=== PATIENT | female | born 1945 | race Caucasian/White ===

== ENCOUNTER → 2019-08-28 | Outpatient (CLI) | payer MEDICARE ==
[~2019-08-28] MED LIST: ASPIRIN325 MG PO; CIPROFLOXACIN500 MG PO; HYDROCODONE BIT1 T11 PO; MULTI-DAY VITA1 EACH PO; NAPROSYN500 MG PO; NAPROXEN500 M1 PO; VICO10300 PO
== END | disposition home or self-care (01) ==
LOC: CARD 00:48
DX: I65.23 Occlusion and stenosis of bilateral carotid arteries (principal); I08.8 Other rheumatic multiple valve diseases; R09.89 Other specified symptoms and signs involving the circulatory and respiratory systems

== ENCOUNTER → 2019-09-29 | Outpatient (CLI) | payer MEDICARE | END | disposition home or self-care (01) | LOC: MAMMO 00:34 | DX: Z12.31 Encounter for screening mammogram for malignant neoplasm of breast (principal); M81.0 Age-related osteoporosis without current pathological fracture; E04.1 Nontoxic single thyroid nodule; Z72.0 Tobacco use; Z78.0 Asymptomatic menopausal state ==

== ENCOUNTER 2020-02-12 16:06 | Inpatient (IN) | payer MEDICARE ==
[~2020-02-12] VITALS: Ht 152.4 cm; Wt 51.4 kg
[2020-02-12 17:30] VITALS: BP 162/87
--- NOTE | 2020-02-12 17:39 | NUR ---
PT WATCHING TV IN [place] BED IN LOWEST POSITION CALL LIGHT IN REACH
[2020-02-12 19:00] VITALS: BP 160/88
[2020-02-12 19:15] LABS: HEMATOCRIT 48.8 % (37.0-47.0); MEAN CELL VOLUME 93.1 fl (81.0-99.0); MEAN CORPUSCULAR HGB 30.3 pg (27.0-31.0); MEAN CORPUSCULAR HGB CONC 32.6 g/dl (33.0-37.0); MEAN PLATELET VOLUME 8.9 fl (9.6-12.3); PLATELET COUNT AUTOMATED 159 10*3/uL (130-400); RED BLOOD COUNT 5.24 10*6/uL (4.10-5.10); RED CELL DISTRI WIDTH 13.6 % (0-14.5); WHITE BLOOD COUNT 2.7 10*3/uL (4.8-10.8)
[2020-02-12 19:33] LABS: ALKALINE PHOSPHATASE 66 U/L (45-117); BUN 10 mg/dl (7-24); CHLORIDE 103 mmol/L (98-107); CREATININE 0.78 mg/dL (0.55-1.02); SGOT/AST 25 IU/L (3-35); SGPT/ALT 19 U/L (12-78); SODIUM 137 mmol/L (136-145); TOTAL PROTEIN 6.7 gm/dL (6.4-8.2)
[2020-02-12 19:36] LABS: ATYPICAL LYMPHS 3 % (0-0); BASOPHILS 1 % (0-1); TOTAL CELLS COUNTED 100 #CELLS
[2020-02-12 19:37] LABS: BURR CELLS FEW; PLATELET SUFFICIENCY NORMAL (NORMAL)
[2020-02-12 19:39] LABS: TROPONIN I < 0.015 ng/ml (<0.045)
[2020-02-12 20:06] VITALS: BP 160/70
--- NOTE | 2020-02-12 22:00 | NUR ---
PT RESTING ON CART AT THIS TIME. CLEMENTINA NASCIMENTO RN.
--- NOTE | 2020-02-13 01:24 | NUR ---
AT THIS TIME THE PULSE OX NOTED TO BE 88% ON 4 LITERS. O2 TURNED UP AND RESP NOTIFEID. CLEMENTINA NASCIMENTO RN.
--- NOTE | 2020-02-13 02:00 | NUR ---
PT PLACED ON 12LHF DUE TO DESATURATION TO 87% ON 6LNC. SATURATION NOTED TO BE 92% ON 12LHF. NO NOTED RES DISTRESS OR SOB NOTED. WILL CONTINUE TO MONITOR.
--- NOTE | 2020-02-13 02:23 | NUR ---
SPOKE WITH DR AGUERO ABOUT THE PATIENT RESP STATUS. BIPAP WAS ORDERED AND STARTED PER RESP. CLEMENTINA NASCIMENTO RN.
[2020-02-13 03:24] VITALS: BP 118/70; BP 167/82
--- NOTE | 2020-02-13 03:25 | NUR ---
PT STATES SHE IS FEELING BETTER WITHT HE BIPAP. SHE DENIES ANY CHEST PAIN. SHE IS AWAKE ALERT. REORIENTED TO CALL SYSTEM. CLEMENTINA NASCIMENTO RN.
[2020-02-13 07:55] LABS: HEMATOCRIT 47.9 % (37.0-47.0); MEAN CELL VOLUME 95.2 fl (81.0-99.0); MEAN CORPUSCULAR HGB 30.4 pg (27.0-31.0); MEAN CORPUSCULAR HGB CONC 31.9 g/dl (33.0-37.0); MEAN PLATELET VOLUME 8.9 fl (9.6-12.3); PLATELET COUNT AUTOMATED 150 10*3/uL (130-400); RED BLOOD COUNT 5.03 10*6/uL (4.10-5.10); RED CELL DISTRI WIDTH 13.6 % (0-14.5)
[2020-02-13 08:05] LABS: BUN 12 mg/dl (7-24); CHLORIDE 104 mmol/L (98-107); CREATININE 0.68 mg/dL (0.55-1.02); POTASSIUM 4.3 mmol/L (3.5-5.1); SODIUM 137 mmol/L (136-145)
[2020-02-13 08:53] LABS: TOTAL CELLS COUNTED 100 #CELLS
[2020-02-13 08:54] LABS: BURR CELLS FEW; PLATELET SUFFICIENCY NORMAL (NORMAL)
--- NOTE | 2020-02-13 09:00 | NUR ---
[employer] Floor Runner talks with patient Patient states lives at home with family. There are no steps in the home. Physician: lj judd Pharmacy: [facility] health services: none Patient's level of ADLs: INDEPENDENT Patient has working utilities: all working DME: none Follow-up physician's appointment after d/c: will be made by hospitalist nurse director upon discharge Does patient want to access PORTAL?: no Discharge plan discussed with patient, she lives at home with family, she states she gets around fine, patient stated she would return home when discharged and denies any home needs at this time, case management will follow. JUANY HERNANDEZ
[2020-02-13 09:23] VITALS: BP 129/70
--- NOTE | 2020-02-13 09:45 | NUR ---
PT FEELING IMPROVED WITH BIPAP. SHE OIS RESTING COMFORTABLY.
[2020-02-13] MEDS ORDERED: LEXAPRO10 MG PO (11:14)
[2020-02-13] MEDS ORDERED: VITAMIN D310 MC3 PO (11:15)
[2020-02-13] MEDS ORDERED: ASPIRIN CHEWABL81 MG PO (11:15)
[2020-02-13] MEDS ORDERED: FOSAMAX70 M1 PO (11:15)
[2020-02-13] MEDS ORDERED: PROAIR RESPICL90 MCG INH (11:16)
[2020-02-13 12:20] VITALS: BP 118/59
--- NOTE | 2020-02-13 12:50 | NUR ---
PT OFF BIPAP. PT WANTED TO TAKE A BREAK TO EAT. PT PLACED ON 10LHFNC. SPO2 94%
[2020-02-13] MEDS ORDERED: KENALOG 0.1%80 GM T (12:56)
--- NOTE | 2020-02-13 14:13 | NUR ---
JAMES NUNO CALLED THE KITCHEN ABOUT PT'S MEAL TRAY. KITCHEN SAYS THEY WILL BRING MEAL TRAY TO ED.
--- NOTE | 2020-02-13 14:15 | NUR ---
PT IN BED ON 10L NC SHE IS RESTING COMFORTABLY.
[2020-02-13 15:08] VITALS: BP 128/72
--- NOTE | 2020-02-13 15:08 | NUR ---
CALL PLACED TO DR. SERRANO ADVISED OF CONSULT, HE VERSED HE WAS AWARE.
--- NOTE | 2020-02-13 17:06 | NUR ---
PT RESTING IN ROOM. NO VOICED COMPLAINTS. CALL LIGHT WITHIN REACH. WILL CONTINUE TO MONITOR.
[2020-02-13 17:07] LABS: ABG BASE EXCESS 0.6 mmol/L (-2.0-2.0); ARTERIAL BLOOD GAS PH 7.362 (7.35-7.45)
[2020-02-13 18:45] VITALS: BP 132/72
--- NOTE | 2020-02-13 19:20 | NUR ---
SPO2 97% ON 10LHIGH FLOW NASAL CANNULA. DECREASED O2 TO 8L. SPO2 95%. WILL CONTINUE TO MONITOR
--- NOTE | 2020-02-13 21:02 | NUR ---
PT RESTING IN BED. NO ACUTE DISTRESS AT THIS TIME.
[2020-02-13 22:27] VITALS: BP 116/67
--- NOTE | 2020-02-13 23:01 | NUR ---
PT RESTING IN BED WATCHING TV. NO DISTRESS AT THIS TIME. STATES SHE FEELS BETTER WHEN SHE IS ON BIPAP
--- NOTE | 2020-02-14 00:07 | NUR ---
PT USED BEDPAN AT THIS TIME. NO ACUTE DISTRESS. NO NEEDS AT THIS TIME. DENIES ANY CHANGES
--- NOTE | 2020-02-14 03:31 | NUR ---
PT RESTING IN BED. NO ACUTE DISTESS. STILL ON BIPAP AT 97%
--- NOTE | 2020-02-14 05:00 | NUR ---
A 74, admitted to , under the services of HENRI Aburto DO with a diagnosis of PNEUMONITIS. Chief complaint is SHORTNESS OF BREATH. Patient arrived via stretcher from ER. Monitor applied. Initial assessment completed. Vital signs taken and recorded. HENRI ABURTO DO notified of admission to the unit. Orders received. See assessment for past medical history, medications and allergies. Patient and/or family oriented to unit. visitation policy reviewed. Clothing/patient valuable form completed. JAZ WALKER
[2020-02-14 06:21] LABS: HEMATOCRIT 46.2 % (37.0-47.0); MEAN CELL VOLUME 96.5 fl (81.0-99.0); MEAN CORPUSCULAR HGB 30.7 pg (27.0-31.0); MEAN CORPUSCULAR HGB CONC 31.8 g/dl (33.0-37.0); MEAN PLATELET VOLUME 8.8 fl (9.6-12.3); PLATELET COUNT AUTOMATED 172 10*3/uL (130-400); RED BLOOD COUNT 4.79 10*6/uL (4.10-5.10); RED CELL DISTRI WIDTH 13.7 % (0-14.5); WHITE BLOOD COUNT 4.1 10*3/uL (4.8-10.8)
[2020-02-14 06:44] LABS: ALBUMIN 2.7 gm/dl (3.1-4.5); ALKALINE PHOSPHATASE 55 U/L (45-117); BUN 16 mg/dl (7-24); CHLORIDE 107 mmol/L (98-107); CPK 82 U/L (26-192); CREATININE 0.71 mg/dL (0.55-1.02); LDH 170 U/L (84-246); SGOT/AST 20 IU/L (3-35); SGPT/ALT 15 U/L (12-78); SODIUM 139 mmol/L (136-145); TOTAL PROTEIN 6.3 gm/dL (6.4-8.2)
[2020-02-14 07:34] LABS: ATYPICAL LYMPHS 3 % (0-0); PLATELET SUFFICIENCY NORMAL (NORMAL); TOTAL CELLS COUNTED 100 #CELLS
[2020-02-14 08:00] VITALS: BP 116/77
[2020-02-14 08:16] LABS: ARTERIAL BLOOD GAS PH 7.35 (7.35-7.45)
--- NOTE | 2020-02-14 10:57 | NUR ---
PT. SETTINGS CHANGED TO 03/[address] SERRANO, RN NOTIFIED.
[2020-02-14 12:00] VITALS: BP 126/87
[2020-02-14 16:00] VITALS: BP 145/79
[2020-02-14 20:00] VITALS: BP 156/71
--- NOTE | 2020-02-14 20:03 | NUR ---
ASSUMED CARE OF PATIENT. PATIENT IS AAOX3 RESTING IN BED WITH EASY AND REGULAR RESPERS ON 8L HIGH FLOW NASAL CANNULA. ASSESSMENT IS COMPLETE WITH NO C/O OR S/S OF DISTRESS NOTED AT THIS TIME. BED IS LOW, LOCKED, AND CALL LIGHT IS WIHTIN REACH. TOWELS AND WASHCLOTHS PROVIDED PER PATIENT REQUEST TO GET WASHED UP FOR BED. WILL CONTINUE TO MONITOR, SEE INTERVENTIONS.
[2020-02-15] VITALS: BP 146/72
--- NOTE | 2020-02-15 02:08 | NUR ---
CHART CHECK COMPLETE.
[2020-02-15 06:44] LABS: HEMATOCRIT 47.4 % (37.0-47.0); MEAN CORPUSCULAR HGB 29.5 pg (27.0-31.0); PLATELET COUNT AUTOMATED 208 10*3/uL (130-400); RED BLOOD COUNT 4.99 10*6/uL (4.10-5.10); RED CELL DISTRI WIDTH 13.4 % (0-14.5); WHITE BLOOD COUNT 2.9 10*3/uL (4.8-10.8)
[2020-02-15 07:05] LABS: ALBUMIN 2.8 gm/dl (3.1-4.5); BUN 17 mg/dl (7-24); CHLORIDE 106 mmol/L (98-107); CREATININE 0.65 mg/dL (0.55-1.02); LDH 180 U/L (84-246); POTASSIUM 4.3 mmol/L (3.5-5.1); SGOT/AST 22 IU/L (3-35); SGPT/ALT 19 U/L (12-78); SODIUM 139 mmol/L (136-145); TOTAL PROTEIN 6.1 gm/dL (6.4-8.2)
[2020-02-15 07:06] LABS: ALKALINE PHOSPHATASE 55 U/L (45-117)
[2020-02-15 07:47] LABS: CPK 51 U/L (26-192)
[2020-02-15 08:00] VITALS: BP 173/88
[2020-02-15 08:29] LABS: ABG BASE EXCESS 2.3 mmol/L (-2.0-2.0); ARTERIAL BLOOD GAS PH 7.416 (7.35-7.45)
--- NOTE | 2020-02-15 08:30 | NUR ---
PATIENT TAKEN OFF OF BI-PAP, PLACED ON 8 L/M HIGH FLOW.
[2020-02-15 08:45] LABS: PLATELET SUFFICIENCY NORMAL (NORMAL); TOTAL CELLS COUNTED 100 #CELLS
--- NOTE | 2020-02-15 09:45 | NUR ---
SPOKE WITH GRANDDAUGHTER PER PATIENT'S REQUEST AND INFORMED HER OF + COVID TEST COMING BACK.
--- NOTE | 2020-02-15 10:30 | NUR ---
NOTIFIED OF PATIENT'S HIGH BP. ORDER RECEIVED.
[2020-02-15 12:00] VITALS: BP 151/68
[2020-02-15 16:00] VITALS: BP 148/72
--- NOTE | 2020-02-15 19:19 | NUR ---
REPORT RECIEVED FROM PREVIOUS RN.
--- NOTE | 2020-02-15 19:20 | NUR ---
CHART CHECK COMPLETE.
[2020-02-15 20:00] VITALS: BP 164/80
--- NOTE | 2020-02-15 21:20 | NUR ---
ASSUMED CARE OF PATIENT. PATIENT IS AAOX3 RESTING IN BED WITH EASY AND REGULAR RESPERS ON 8L O2 VIA HIGH FLOW NASAL CANNULA. ASSESSMENT IS COMPLETE WITH NO C/O OR S/S OF DISTRESS NOTED AT THIS TIME. BED IS LOW, LOCKED, AND CALL LIGHT IS WITHIN REACH. CONTINUOUS PULSE OX IN PLACE. PULSE OX 98% TITRATED O2 DOWN TO 6L STILL HIGH FLOW NASAL CANNULA. PATIENT IS TOLERATING WELL. PULSE OX CURRENTLY 95% WILL CONTINUE TO MONITOR, SEE INTERVENTIONS.
[2020-02-16] VITALS: BP 170/79
--- NOTE | 2020-02-16 01:52 | NUR ---
PATIENT APPEARS TO BE SLEEPING WITH EASY AND REGULAR RESPERS ON BIPAP 12/8 60% O2. PULSE OX IS 97%. BED IS LOW, LOCKED, AND CALL LIGHT IS WITHIN REACH. WILL CONTINUE TO MONITOR.
--- NOTE | 2020-02-16 05:21 | NUR ---
PATIENT OFF BIPAP PER REQUEST. ON 6L O2 VIA HIGH FLOW NASAL CANNULA. PULSE OX 96%. NO NEEDS VOICED AT THIS TIME. BED IS LOW, LOCKED, AND CALL LIGHT IS WITHIN REACH. WILL CONTINUE TO MONITOR.
[2020-02-16 05:42] LABS: ALBUMIN 2.8 gm/dl (3.1-4.5); BUN 17 mg/dl (7-24); CHLORIDE 106 mmol/L (98-107); CREATININE 0.71 mg/dL (0.55-1.02); LDH 181 U/L (84-246); POTASSIUM 4.2 mmol/L (3.5-5.1); SGOT/AST 18 IU/L (3-35); SGPT/ALT 19 U/L (12-78); SODIUM 139 mmol/L (136-145); TOTAL PROTEIN 6.4 gm/dL (6.4-8.2)
[2020-02-16 05:44] LABS: ALKALINE PHOSPHATASE 55 U/L (45-117); CPK 50 U/L (26-192)
[2020-02-16 06:26] LABS: HEMATOCRIT 48.5 % (37.0-47.0); MEAN CELL VOLUME 94.9 fl (81.0-99.0); MEAN CORPUSCULAR HGB 29.7 pg (27.0-31.0); MEAN CORPUSCULAR HGB CONC 31.3 g/dl (33.0-37.0); MEAN PLATELET VOLUME 9.2 fl (9.6-12.3); PLATELET COUNT AUTOMATED 223 10*3/uL (130-400); RED BLOOD COUNT 5.11 10*6/uL (4.10-5.10); RED CELL DISTRI WIDTH 13.1 % (0-14.5)
--- NOTE | 2020-02-16 06:47 | NUR ---
PATIENT PULSE OX MAINTAINING 88-89%. O2 NOW 8L VIA HIGH FLOW NASAL CANNULA. PULSE OX 93%. PATIENT TOLERATING WELL. CALL LIGHT IS WITHIN REACH, WILL CONTINUE TO MONITOR.
[2020-02-16 07:10] LABS: ATYPICAL LYMPHS 2 % (0-0); PLASMA CELL 1 % (0-0); TOTAL CELLS COUNTED 100 #CELLS
[2020-02-16 07:11] LABS: BURR CELLS FEW; PLATELET SUFFICIENCY NORMAL (NORMAL)
[2020-02-16 08:00] VITALS: BP 160/80
[2020-02-16 08:31] LABS: ABG BASE EXCESS 2.2 mmol/L (-2.0-2.0); ARTERIAL BLOOD GAS PH 7.419 (7.35-7.45)
--- NOTE | 2020-02-16 10:39 | NUR ---
Patient referral faxed to [facility] for covid positive unit. Waiting on review.
[2020-02-16 12:00] VITALS: BP 167/80
--- NOTE | 2020-02-16 12:21 | NUR ---
case management called patient to discuss a LTAC upon discharge. patient was on bipap at this time. asked if case management could talk with a family member and she stated that would be fine. case management called ro Mcnulty to notify. educated her that case management thought patient was not able to return home at this time and care for herself. case management would ronan to refer her to an LTAC, [facility]. Pricila stated he would be ok to refer her to [facility]. Pricila would like called and she will relay information to rest of patient's family
--- NOTE | 2020-02-16 13:03 | NUR ---
Logan stating their planned discharge for today at the [facility] was cancelled so they don't have any beds right now. They will add patient to their "waiting list" and let us know what their bed situation is daily.
[2020-02-16 16:00] VITALS: BP 148/81
--- NOTE | 2020-02-16 16:49 | NUR ---
PT TOOLERATED BIPAP 8 HOURS WITHOUT DIFFCULTY
[2020-02-16 20:00] VITALS: BP 152/73
[2020-02-16 22:07] LABS: ABG BASE EXCESS 2.3 mmol/L (-2.0-2.0); ARTERIAL BLOOD GAS PH 7.436 (7.35-7.45)
[2020-02-17] VITALS: BP 142/68
[2020-02-17 06:19] LABS: BASO % 0.2 % (0.0-1.0); EOS % 0.2 % (1.0-4.0); HEMATOCRIT 47.8 % (37.0-47.0); LYMPH # 1.2 10*3/uL (1.3-4.4); LYMPH % 21.5 % (27.0-41.0); MEAN CELL VOLUME 94.8 fl (81.0-99.0); MEAN CORPUSCULAR HGB 30.2 pg (27.0-31.0); MEAN CORPUSCULAR HGB CONC 31.8 g/dl (33.0-37.0); MEAN PLATELET VOLUME 8.9 fl (9.6-12.3); MONO # 0.6 10*3/uL (0.1-1.0); MONO % 10.5 % (3.0-9.0); NEUT # 3.7 10*3/uL (2.3-7.9); NEUT % 67.2 % (47.0-73.0); PLATELET COUNT AUTOMATED 224 10*3/uL (130-400); RED BLOOD COUNT 5.04 10*6/uL (4.10-5.10); RED CELL DISTRI WIDTH 13.2 % (0-14.5); WHITE BLOOD COUNT 5.5 10*3/uL (4.8-10.8)
[2020-02-17 06:36] LABS: CHLORIDE 108 mmol/L (98-107); POTASSIUM 4.1 mmol/L (3.5-5.1); SODIUM 140 mmol/L (136-145)
[2020-02-17 06:41] LABS: ALBUMIN 2.7 gm/dl (3.1-4.5); ALKALINE PHOSPHATASE 50 U/L (45-117); BUN 14 mg/dl (7-24); CPK 58 U/L (26-192); CREATININE 0.65 mg/dL (0.55-1.02); LDH 179 U/L (84-246); SGOT/AST 16 IU/L (3-35); SGPT/ALT 18 U/L (12-78)
--- NOTE | 2020-02-17 06:54 | NUR ---
[facility] stating patient is accepted and they have a bed for her today Sunday02/17/2020, they would like patient discharged. Notified Dr. John.
[2020-02-17 08:00] VITALS: BP 152/71
[2020-02-17] MEDS ORDERED: DECADRON4 MG PO (09:10)
[2020-02-17] MEDS ORDERED: ENOXAPARIN40 MG/0.2 SC (09:10)
--- NOTE | 2020-02-17 10:43 | NUR ---
Patient is discharged to [facility] via [facility] at 12:00 noon. LTACH, nursing/steward/stewardess smoke room and daughter Mara all notified.
[2020-02-17 12:00] VITALS: BP 124/50
--- NOTE | 2020-02-17 13:32 | NUR ---
REPORT GIVEN TO RECEIVING NURSE AT [facility].
--- NOTE | 2020-02-17 15:15 | NUR ---
PATIENT PICKED UP BY [facility] TO BE TRANSPORTED TO [facility]. IV REMAINS PATENT AND INTACT. REPORT HAS BEEN GIVEN TO RECEIVING NURSE. DISCHARGED VIA CART AT THIS TIME.
== END 2020-02-17 16:49 | DRG 177 ==
LOC: ED 16:06 → 4E 20:36 → EDHOLD 20:36 → 4E 02-14 04:29
PROVIDERS: Family Medicine; Internal Medicine Critical Care Medicine; Physician Assistant; Student in an Organized Health Care Education/Training Program; ADMIT Internal Medicine; ATTEND Internal Medicine
PROC: 5A09357 Assistance with Respiratory Ventilation, Less than 24 Consecutive Hours, Continuous Positive Airway Pressure (ICD-10-PCS; principal; 2020-02-13)
PROC: 5A09357 Assistance with Respiratory Ventilation, Less than 24 Consecutive Hours, Continuous Positive Airway Pressure (ICD-10-PCS; 2020-02-14)
PROC: 5A09357 Assistance with Respiratory Ventilation, Less than 24 Consecutive Hours, Continuous Positive Airway Pressure (ICD-10-PCS; 2020-02-15)
PROC: 5A0935A Assistance with Respiratory Ventilation, Less than 24 Consecutive Hours, High Flow/Velocity Cannula (ICD-10-PCS; 2020-02-15)
PROC: 5A09357 Assistance with Respiratory Ventilation, Less than 24 Consecutive Hours, Continuous Positive Airway Pressure (ICD-10-PCS; 2020-02-16)
PROC: 5A09357 Assistance with Respiratory Ventilation, Less than 24 Consecutive Hours, Continuous Positive Airway Pressure (ICD-10-PCS; 2020-02-17)
PROC: 5A0935A Assistance with Respiratory Ventilation, Less than 24 Consecutive Hours, High Flow/Velocity Cannula (ICD-10-PCS; 2020-02-17)
DX: U07.1 COVID-19 (principal); J96.01 Acute respiratory failure with hypoxia; J18.9 Pneumonia, unspecified organism; E44.0 Moderate protein-calorie malnutrition; J44.1 Chronic obstructive pulmonary disease with (acute) exacerbation; J44.0 Chronic obstructive pulmonary disease with (acute) lower respiratory infection; D68.59 Other primary thrombophilia; E86.0 Dehydration; M81.0 Age-related osteoporosis without current pathological fracture; F32.9 Major depressive disorder, single episode, unspecified; E55.9 Vitamin D deficiency, unspecified; R73.9 Hyperglycemia, unspecified; Z68.21 Body mass index [BMI] 21.0-21.9, adult; Z90.710 Acquired absence of both cervix and uterus; Z87.891 Personal history of nicotine dependence; Z86.73 Personal history of transient ischemic attack (TIA), and cerebral infarction without residual deficits; Z82.3 Family history of stroke; Z82.49 Family history of ischemic heart disease and other diseases of the circulatory system; Z79.82 Long term (current) use of aspirin; Z79.899 Other long term (current) drug therapy; Z98.49 Cataract extraction status, unspecified eye; Z96.1 Presence of intraocular lens

== ENCOUNTER → 2020-04-05 | Outpatient (CLI) | payer MEDICARE ==
[~2020-04-05] MED LIST changes: +ASPIRIN CHEWABL81 MG PO; +DECADRON4 MG PO; +ENOXAPARIN40 MG/0.2 SC; +FOSAMAX70 M1 PO; +KENALOG 0.1%80 GM T; +LEXAPRO10 MG PO; +PROAIR RESPICL90 MCG INH; +VITAMIN D310 MC3 PO
== END | disposition home or self-care (01) ==
LOC: RAD 12:49
PROVIDERS: ATTEND Nurse Practitioner Primary Care
DX: J44.9 Chronic obstructive pulmonary disease, unspecified (principal); U07.1 COVID-19; J18.9 Pneumonia, unspecified organism

== ENCOUNTER → 2020-12-22 | Outpatient (CLI) | payer MEDICARE | END | disposition home or self-care (01) | LOC: RESCLI 06:44 | PROVIDERS: ATTEND Internal Medicine | DX: K21.00 Gastro-esophageal reflux disease with esophagitis, without bleeding (principal); E55.9 Vitamin D deficiency, unspecified; I25.10 Atherosclerotic heart disease of native coronary artery without angina pectoris; E04.1 Nontoxic single thyroid nodule; J44.9 Chronic obstructive pulmonary disease, unspecified; F39 Unspecified mood [affective] disorder; M81.0 Age-related osteoporosis without current pathological fracture; Z79.82 Long term (current) use of aspirin; Z79.899 Other long term (current) drug therapy; Z90.710 Acquired absence of both cervix and uterus; Z98.890 Other specified postprocedural states ==

== ENCOUNTER → 2021-07-12 | Outpatient (CLI) | payer MEDICARE | END | disposition home or self-care (01) | LOC: RESCLI 00:36 | PROVIDERS: ATTEND Internal Medicine | DX: I25.10 Atherosclerotic heart disease of native coronary artery without angina pectoris (principal); E55.9 Vitamin D deficiency, unspecified; J44.9 Chronic obstructive pulmonary disease, unspecified; K21.00 Gastro-esophageal reflux disease with esophagitis, without bleeding; M81.0 Age-related osteoporosis without current pathological fracture; F39 Unspecified mood [affective] disorder; J30.1 Allergic rhinitis due to pollen; Z79.899 Other long term (current) drug therapy; Z79.82 Long term (current) use of aspirin ==

== ENCOUNTER → 2021-07-13 | Outpatient (CLI) | payer MEDICARE | END | disposition home or self-care (01) | LOC: US 12:44 | PROVIDERS: ATTEND Nurse Practitioner Primary Care | DX: I65.23 Occlusion and stenosis of bilateral carotid arteries (principal); I25.10 Atherosclerotic heart disease of native coronary artery without angina pectoris; R09.89 Other specified symptoms and signs involving the circulatory and respiratory systems ==

== ENCOUNTER → 2022-06-06 | Outpatient (CLI) | payer MEDICARE ==
[~2022-06-06] MED LIST changes: +LEVOFLOXACIN750 M2 PO; +PRAVASTATIN SOD10 MG PO; +PREDNISONE10 MG PO; +TOPCARE OMEPRAZ20 MG PO
[2022-06-06 16:56] LABS: BASO # 0.1 10*3/uL (0.0-0.1); EOS # 0.2 10*3/uL (0.0-0.4); EOS % 3.8 % (1.0-4.0); HEMATOCRIT 44.6 % (37.0-47.0); LYMPH # 1.3 10*3/uL (1.3-4.4); LYMPH % 20.9 % (27.0-41.0); MEAN CELL VOLUME 98.9 fl (81.0-99.0); MEAN CORPUSCULAR HGB 30.6 pg (27.0-31.0); MEAN CORPUSCULAR HGB CONC 30.9 g/dl (33.0-37.0); MEAN PLATELET VOLUME 8.5 fl (9.6-12.3); MONO # 0.5 10*3/uL (0.1-1.0); MONO % 8.4 % (3.0-9.0); NEUT % 65.7 % (47.0-73.0); PLATELET COUNT AUTOMATED 269 10*3/uL (130-400); RED BLOOD COUNT 4.51 10*6/uL (4.10-5.10); RED CELL DISTRI WIDTH 12.6 % (0-14.5); WHITE BLOOD COUNT 6.1 10*3/uL (4.8-10.8)
[2022-06-06 17:14] LABS: ALKALINE PHOSPHATASE 55 U/L (46-116); BUN 10 mg/dl (9-23); CHLORIDE 103 mmol/L (98-107); CHOLESTEROL 209 mg/dL (<200); LDL CHOLESTEROL 119 mg/dL (9-159); POTASSIUM 3.9 mmol/L (3.4-5.1); TOTAL PROTEIN 6.7 gm/dL (6.0-8.0); TRIGLYCERIDES 73 mg/dl (<150)
[2022-06-06 17:27] LABS: SGPT/ALT < 7 U/L (10-49)
== END | disposition home or self-care (01) ==
LOC: RESCLI 02:14
PROVIDERS: Internal Medicine; ATTEND Internal Medicine
DX: I25.10 Atherosclerotic heart disease of native coronary artery without angina pectoris (principal); E55.9 Vitamin D deficiency, unspecified; J44.9 Chronic obstructive pulmonary disease, unspecified; J30.1 Allergic rhinitis due to pollen; M81.0 Age-related osteoporosis without current pathological fracture; K21.9 Gastro-esophageal reflux disease without esophagitis; E78.5 Hyperlipidemia, unspecified; D72.819 Decreased white blood cell count, unspecified; Z87.891 Personal history of nicotine dependence; Z82.49 Family history of ischemic heart disease and other diseases of the circulatory system; Z90.710 Acquired absence of both cervix and uterus; Z98.890 Other specified postprocedural states; Z79.82 Long term (current) use of aspirin; Z79.899 Other long term (current) drug therapy

== ENCOUNTER → 2022-06-23 | Outpatient (CLI) | payer MEDICARE | END | disposition home or self-care (01) | LOC: RAD 00:39 | PROVIDERS: ATTEND Internal Medicine | DX: M81.0 Age-related osteoporosis without current pathological fracture (principal) ==

== ENCOUNTER → 2023-08-01 | Outpatient (CLI) | payer MEDICARE | END | disposition home or self-care (01) | LOC: RESCLI 02:09 | PROVIDERS: ATTEND Student in an Organized Health Care Education/Training Program | DX: J44.9 Chronic obstructive pulmonary disease, unspecified (principal); E78.5 Hyperlipidemia, unspecified; E55.9 Vitamin D deficiency, unspecified; I25.10 Atherosclerotic heart disease of native coronary artery without angina pectoris; F39 Unspecified mood [affective] disorder; K21.9 Gastro-esophageal reflux disease without esophagitis; M81.0 Age-related osteoporosis without current pathological fracture; Z87.891 Personal history of nicotine dependence; Z82.49 Family history of ischemic heart disease and other diseases of the circulatory system; Z98.890 Other specified postprocedural states; Z79.899 Other long term (current) drug therapy ==

== ENCOUNTER → 2024-04-08 | Outpatient (CLI) | payer MEDICARE ==
[~2024-04-08] MED LIST changes: +BARIUM SULFATE 60% 355 ML BOT PO ONE; +BARIUM SULFATE TABLET 700 MG PO ONE
== END | disposition home or self-care (01) ==
LOC: RAD 00:25
PROVIDERS: ATTEND Nurse Practitioner Primary Care
DX: R13.19 Other dysphagia (principal); J43.8 Other emphysema

== ENCOUNTER → 2024-07-25 | Outpatient (CLI) | payer MEDICARE ==
[~2024-07-25] MED LIST changes: -BARIUM SULFATE 60% 355 ML BOT PO ONE; -BARIUM SULFATE TABLET 700 MG PO ONE
== END | disposition home or self-care (01) ==
LOC: RESCLI 00:57
PROVIDERS: ATTEND Internal Medicine
DX: J44.9 Chronic obstructive pulmonary disease, unspecified (principal); E78.5 Hyperlipidemia, unspecified; E55.9 Vitamin D deficiency, unspecified; I25.10 Atherosclerotic heart disease of native coronary artery without angina pectoris; F39 Unspecified mood [affective] disorder; M81.0 Age-related osteoporosis without current pathological fracture; F41.9 Anxiety disorder, unspecified; Z79.899 Other long term (current) drug therapy; Z98.890 Other specified postprocedural states

== ENCOUNTER → 2024-10-20 | Outpatient (CLI) | payer MEDICARE ==
[2024-10-20 17:25] LABS: BASO # 0.0 10*3/uL (0.0-0.1); BASO % 0.4 % (0.0-1.0); EOS # 0.0 10*3/uL (0.0-0.4); EOS % 0.3 % (1.0-4.0); MEAN CELL VOLUME 95.0 fl (81.0-99.0); MEAN CORPUSCULAR HGB 29.6 pg (27.0-31.0); MEAN PLATELET VOLUME 8.7 fl (9.6-12.3); MONO # 0.9 10*3/uL (0.1-1.0); MONO % 10.9 % (3.0-9.0); NEUT # 6.6 10*3/uL (2.3-7.9); NEUT % 83.0 % (47.0-73.0); NUCLEATED RED BLOOD CELL 0.0 % (0.0-0.0); NUCLEATED RED BLOOD CELL 0.0 10*3/uL (0.0-0.0); PLATELET COUNT AUTOMATED 262 10*3/uL (130-400); RED CELL DISTRI WIDTH 12.6 % (0-14.5)
[2024-10-20 17:53] LABS: BUN 10 mg/dl (9-23); SGPT/ALT 11 U/L (5-49)
== END | disposition home or self-care (01) ==
LOC: LAB 17:04
PROVIDERS: ATTEND Nurse Practitioner Primary Care
DX: J44.9 Chronic obstructive pulmonary disease, unspecified (principal); J98.4 Other disorders of lung; J40 Bronchitis, not specified as acute or chronic; E04.1 Nontoxic single thyroid nodule; E55.9 Vitamin D deficiency, unspecified

== ENCOUNTER 2025-01-06 20:22 | Inpatient (IN) | payer MEDICARE ==
[~2025-01-06] VITALS: Ht 152.4 cm; Wt 46.7 kg
[2025-01-06] MEDS ORDERED: SODIUM CHLORIDE 0.9% 1,000 ML IV ONE (20:35)
[2025-01-06] MEDS ORDERED: Ondansetron Hydrochloride 4 MG/2 ML VIAL IV ONE (20:35)
[2025-01-06 20:38] VITALS: BP 99/60
[2025-01-06 21:03] LABS: BASO # 0.0 10*3/uL (0.0-0.1); BASO % 0.4 % (0.0-1.0); EOS # 0.0 10*3/uL (0.0-0.4); EOS % 0.0 % (1.0-4.0); MEAN CELL VOLUME 94.1 fl (81.0-99.0); MEAN CORPUSCULAR HGB 30.0 pg (27.0-31.0); MEAN PLATELET VOLUME 9.7 fl (9.6-12.3); MONO # 0.2 10*3/uL (0.1-1.0); MONO % 7.2 % (3.0-9.0); NEUT # 2.2 10*3/uL (2.3-7.9); NEUT % 86.8 % (47.0-73.0); NUCLEATED RED BLOOD CELL 0.0 % (0.0-0.0); NUCLEATED RED BLOOD CELL 0.0 10*3/uL (0.0-0.0); PLATELET COUNT AUTOMATED 93 10*3/uL (130-400); RED CELL DISTRI WIDTH 13.2 % (0-14.5)
[2025-01-06 21:14] LABS: BUN 16 mg/dl (9-23)
[2025-01-06] MEDS ORDERED: POTASSIUM CHLORIDE 20 MEQ TAB PO ONE (21:15)
[2025-01-06 23:00] LABS: BILIRUBIN Negative (Negative); BLOOD 1+ (Negative); CLARITY Turbid (Clear); COLOR Yellow (Yellow); KETONE Trace (Negative); LEUKO ESTERASE 1+ (Negative); NITRITE Negative (Negative); PH 5.5 (4.5-8.0); SPECIFIC GRAVITY 1.020 (1.001-1.030); UROBILINOGEN 1.0 E.U./dl (0.0-1.0)
[2025-01-06 23:16] LABS: BACTERIA 3+; RBC 21-30 rbc/hpf (0-2); WBC 21-30 wbc/hpf (0-5)
[2025-01-06] MEDS ORDERED: SODIUM CHLORIDE 0.9% 1,000 ML IV SCH (23:20)
[2025-01-06 23:44] VITALS: BP 101/53
[2025-01-07] MEDS ORDERED: Ondansetron Hydrochloride 4 MG/2 ML VIAL IV PRN (00:45)
[2025-01-07] MEDS ORDERED: BISACODYL 5 MG TAB PO PRN (00:45)
[2025-01-07] MEDS ORDERED: Acetaminophen/Hydrocodone 5 MG/325 MG TABLET PO PRN (00:45)
[2025-01-07] MEDS ORDERED: ACETAMINOPHEN 650 MG SUPP R PRN (00:45)
[2025-01-07] MEDS ORDERED: ACETAMINOPHEN 325 MG TAB PO PRN (00:45)
[2025-01-07] MEDS ORDERED: BISACODYL 10 MG SUPP R PRN (00:45)
[2025-01-07] MEDS ORDERED: Albuterol Sulf/Ipratropium 3 ML VIAL NEB SCH (00:50)
[2025-01-07 01:07] VITALS: BP 116/75
[2025-01-07] MEDS ORDERED: HYDROXYZINE HCL10 MG PO (01:15)
[2025-01-07] MEDS ORDERED: AZITHROMYCIN 250 ML IV ONE (01:30)
[2025-01-07] MEDS ORDERED: ASPIRIN81 M3 PO (01:36)
[2025-01-07] MEDS ORDERED: OMEPRAZOLE 20 MG CAP PO SCH (06:00)
[2025-01-07 06:22] LABS: BUN 16 mg/dl (9-23); FREE T4 1.04 ng/dl (0.89-1.76); LDL CHOLESTEROL 75 mg/dL (9-159); SGPT/ALT 87 U/L (5-49)
[2025-01-07 06:23] LABS: BASO # 0.0 10*3/uL (0.0-0.1); BASO % 0.5 % (0.0-1.0); EOS # 0.0 10*3/uL (0.0-0.4); EOS % 0.0 % (1.0-4.0); MEAN CORPUSCULAR HGB 29.8 pg (27.0-31.0); MEAN PLATELET VOLUME 10.2 fl (9.6-12.3); MONO # 0.1 10*3/uL (0.1-1.0); MONO % 6.0 % (3.0-9.0); NEUT # 1.9 10*3/uL (2.3-7.9); NEUT % 87.0 % (47.0-73.0); NUCLEATED RED BLOOD CELL 0.0 % (0.0-0.0); NUCLEATED RED BLOOD CELL 0.0 10*3/uL (0.0-0.0); PLATELET COUNT AUTOMATED 86 10*3/uL (130-400); RED CELL DISTRI WIDTH 13.2 % (0-14.5)
[2025-01-07 06:25] LABS: MEAN CELL VOLUME 97.5 fl (81.0-99.0)
[2025-01-07 06:40] LABS: VITAMIN D, 25-HYDROXY 31.9 ng/mL (30-100)
[2025-01-07 08:00] VITALS: BP 142/76
[2025-01-07] MEDS ORDERED: ATORVASTATIN CALCIUM 10 MG TAB PO SCH (10:00)
[2025-01-07] MEDS ORDERED: ASPIRIN ENTERIC COATED 81 MG TAB PO SCH (10:00)
[2025-01-07] MEDS ORDERED: AZITHROMYCIN 250 ML IV SCH (10:00)
[2025-01-07] MEDS ORDERED: GUAIFENESIN 600 MG TAB ER PO SCH (10:00)
[2025-01-07 11:59] VITALS: BP 142/76
[2025-01-07 15:48] VITALS: BP 151/77
[2025-01-07] MEDS ORDERED: SODIUM CHLORIDE 0.9% 1,000 ML IV ONE (18:30)
[2025-01-07] MEDS ORDERED: Meropenem 500 MG IV SCH (19:30)
[2025-01-07 20:00] VITALS: BP 124/70
[2025-01-07] MEDS ORDERED: Piperacillin Sodium/Tazobact 2.25 GM in SODIUM CHLORIDE 0.9% 50 ML IV SCH (20:00)
[2025-01-07] MEDS ORDERED: ESCITALOPRAM OXALATE 10 MG TAB PO SCH (22:00)
[2025-01-08] VITALS: BP 119/71
[2025-01-08] MEDS ORDERED: AZITHROMYCIN 250 ML IV SCH
[2025-01-08 06:07] LABS: BUN 14 mg/dl (9-23); SGPT/ALT 117 U/L (5-49)
[2025-01-08 06:19] LABS: MANUAL DIFF REFLEX YES; MEAN CELL VOLUME 96.3 fl (81.0-99.0); MEAN CORPUSCULAR HGB 29.7 pg (27.0-31.0); MEAN PLATELET VOLUME 10.6 fl (9.6-12.3); NUCLEATED RED BLOOD CELL 0.0 % (0.0-0.0); NUCLEATED RED BLOOD CELL 0.0 10*3/uL (0.0-0.0); RED CELL DISTRI WIDTH 13.3 % (0-14.5)
[2025-01-08 06:20] LABS: PLATELET COUNT AUTOMATED 55 10*3/uL (130-400)
[2025-01-08 06:55] LABS: BASOPHILS 1 % (0-1)
[2025-01-08 06:56] LABS: PLATELET SUFFICIENCY LOW (NORMAL)
[2025-01-08 08:00] VITALS: BP 140/81
[2025-01-08 12:00] VITALS: BP 146/83
[2025-01-08 16:00] VITALS: BP 154/87
[2025-01-08] MEDS ORDERED: IBUPROFEN 400 MG TAB PO PRN (16:10)
[2025-01-08] MEDS ORDERED: IBUPROFEN 400 MG TAB PO ONE (19:10)
[2025-01-08 20:00] VITALS: BP 114/60
[2025-01-09] VITALS: BP 129/72
[2025-01-09 05:52] LABS: BUN 14 mg/dl (9-23); SGPT/ALT 130 U/L (5-49)
[2025-01-09 06:10] LABS: MEAN CELL VOLUME 96.2 fl (81.0-99.0); MEAN CORPUSCULAR HGB 29.4 pg (27.0-31.0); MEAN PLATELET VOLUME 11.4 fl (9.6-12.3); NUCLEATED RED BLOOD CELL 0.0 % (0.0-0.0); NUCLEATED RED BLOOD CELL 0.0 10*3/uL (0.0-0.0); PLATELET COUNT AUTOMATED 43 10*3/uL (130-400); RED CELL DISTRI WIDTH 13.3 % (0-14.5)
[2025-01-09 06:24] LABS: MANUAL DIFF REFLEX YES
[2025-01-09 07:05] LABS: PLATELET SUFFICIENCY LOW (NORMAL)
[2025-01-09 08:00] VITALS: BP 137/80
[2025-01-09 12:00] VITALS: BP 147/77
[2025-01-09 16:00] VITALS: BP 140/77
[2025-01-09] MEDS ORDERED: PREDNISONE10 MG PO (16:27)
== END 2025-01-09 17:52 | disposition home or self-care (01) | DRG 871 ==
LOC: ED 20:22 → 5E 23:31 → EDHOLD 23:31 → 5E 01-07 00:04
PROVIDERS: Internal Medicine; Nurse Practitioner Family; Student in an Organized Health Care Education/Training Program; ADMIT Internal Medicine; ATTEND Internal Medicine
DX: A41.9 Sepsis, unspecified organism (principal); E43 Unspecified severe protein-calorie malnutrition; G93.41 Metabolic encephalopathy; J96.01 Acute respiratory failure with hypoxia; J44.1 Chronic obstructive pulmonary disease with (acute) exacerbation; N30.01 Acute cystitis with hematuria; J98.4 Other disorders of lung; F32.A Depression, unspecified; L40.8 Other psoriasis; E87.6 Hypokalemia; I25.10 Atherosclerotic heart disease of native coronary artery without angina pectoris; M81.0 Age-related osteoporosis without current pathological fracture; R65.20 Severe sepsis without septic shock; D69.6 Thrombocytopenia, unspecified; E55.9 Vitamin D deficiency, unspecified; Z20.822 Contact with and (suspected) exposure to COVID-19; R74.01 Elevation of levels of liver transaminase levels; K76.89 Other specified diseases of liver; Z86.73 Personal history of transient ischemic attack (TIA), and cerebral infarction without residual deficits; Z79.899 Other long term (current) drug therapy; Z79.01 Long term (current) use of anticoagulants; Z79.2 Long term (current) use of antibiotics; Z79.82 Long term (current) use of aspirin; Z90.49 Acquired absence of other specified parts of digestive tract; Z98.42 Cataract extraction status, left eye; Z98.41 Cataract extraction status, right eye; Z90.710 Acquired absence of both cervix and uterus; Z87.891 Personal history of nicotine dependence; Z82.49 Family history of ischemic heart disease and other diseases of the circulatory system; Z82.3 Family history of stroke; Z68.20 Body mass index [BMI] 20.0-20.9, adult

== ENCOUNTER 2025-01-12 19:14 | Emergency (ER) | payer MEDICARE ==
[~2025-01-12] VITALS: Ht 152.4 cm; Wt 46.7 kg
[~2025-01-12 19:14] MED LIST changes: +ASPIRIN81 M3 PO; +HYDROXYZINE HCL10 MG PO
[2025-01-12 19:34] VITALS: BP 155/88
[2025-01-12] MEDS ORDERED: POTASSIUM CHLO20 ME3 PO (20:39)
[2025-01-12] MEDS ORDERED: POTASSIUM CHLORIDE 20 MEQ TAB PO ONE (20:40)
== END 2025-01-12 21:09 | disposition home or self-care (01) ==
LOC: ED 19:14
DX: E87.6 Hypokalemia (principal); I25.10 Atherosclerotic heart disease of native coronary artery without angina pectoris; J44.9 Chronic obstructive pulmonary disease, unspecified; F32.A Depression, unspecified; Z87.440 Personal history of urinary (tract) infections; Z87.891 Personal history of nicotine dependence; Z90.710 Acquired absence of both cervix and uterus; Z90.49 Acquired absence of other specified parts of digestive tract; Z98.890 Other specified postprocedural states